=== PATIENT | female | born 1995 | race Caucasian/White ===

== ENCOUNTER 2017-05-07 16:38 | Emergency (ER) | payer SELFPAY ==
[2017-05-07 16:46] VITALS: BP 140/85
--- NOTE | 2017-05-07 17:28 | ER Document Report ---
HPI - HPI Pain Level: Denies Notes: Patient is a 21-year-old female who presents the ED complaining of an abscess to her posterior left leg and her anterior right leg 4 days. Patient states that they have been draining and are painful. She has not noticed any red streaks. She has been using some [id number] meds with minimal relief. She has not been applying any triple antibiotic ointment. Patient denies any history of MRSA. She is not aware of any insect bites to her legs. Patient still able to ambulate without any difficulties. No other concerns or complaints at this time. Denies any headache, fever, URI, sore throat, chest pain, palpitations, syncope, cough, shortness of breath, wheeze, dyspnea, abdominal pain, nausea/vomiting/diarrhea, numbness/tingling, muscle paralysis/ weakness. Patient denies any other illicit drug use. Denies any significant past medical history. - ROS Notes: REVIEW OF SYSTEMS: CONSTITUTIONAL : Denies fever, chills, or sweats. Denies recent illness. EENT: Denies eye, ear, throat, or mouth pain or symptoms. Denies nasal or sinus congestion or discharge. Denies throat, tongue, or mouth swelling or difficulty swallowing. CARDIOVASCULAR: Denies chest pain. Denies palpitations or racing or irregular heart beat. Denies ankle edema. RESPIRATORY: Denies cough, cold, or chest congestion. Denies shortness of breath, difficulty breathing, or wheezing. GASTROINTESTINAL: Denies abdominal pain or distention. Denies nausea, vomiting , or diarrhea. Denies blood in vomitus, stools, or per rectum. Denies black, tarry stools. Denies constipation. GENITOURINARY: Denies difficulty urinating, painful urination, burning, frequency, blood in urine, or discharge. MUSCULOSKELETAL: Denies back or neck pain or stiffness. Denies joint pain or swelling. SKIN: see hpi NEUROLOGICAL: Denies confusion or altered mental status. Denies passing out or loss of consciousness. Denies dizziness or lightheadedness. Denies headache. Denies weakness or paralysis or loss of use of either side. Denies problems with gait or speech. Denies sensory loss, numbness, or tingling. ALL OTHER SYSTEMS REVIEWED AND NEGATIVE. Dictation was performed using [employer] recognition software - DERM Skin Color: Normal Past Medical History - Social History Smoking Status: Unknown if Ever Smoked Family History: Reviewed & Not Pertinent Renal/ Medical History: Denies: Hx Peritoneal Dialysis Vertical Provider Document - CONSTITUTIONAL Agree With Documented VS: Yes Notes: PHYSICAL EXAMINATION: GENERAL: Well-appearing, well-nourished and in no acute distress. LUNGS: Breath sounds clear to auscultation bilaterally and equal. No wheezes rales or rhonchi. HEART: Regular rate and rhythm without murmurs, rubs, gallops. Musculoskeletal: LE's b/l: FROM to passive/active. Strength 5+/5. Extremities: No cyanosis, clubbing, or edema b/l. Peripheral pulses 2+. Capillary refill less than 3 seconds. NEUROLOGICAL: Normal speech, normal gait. Normal sensory, motor exams PSYCH: Normal mood, normal affect. SKIN: Left posterior lecm x2cm abscess noted that is open with minimal discharge. + tenderness/induration. No streaks of fluid pocket otherwise. Rt anterior [id number] erythemic/indurated abscess with + tenderness. No discharge appreciated. No streaks noted. - INFECTION CONTROL TRAVEL OUTSIDE OF THE [place] IN LAST 30 DAYS: No - RESPIRATORY O2 Sat by Pulse Oximetry: 99 Course - Re-evaluation Re-evalutation: 05/07/17 17:33 Patient is an afebrile, well-hydrated, 21-year-old female who presents the ED with 2 abscesses on her legs bilaterally. Vitals are stable. PE otherwise unremarkable at this time. Wound culture was obtained from the draining abscess. Reviewed the treatment plans with the patient and recommended incision and drainage with wound packing, but patient declined. Risks/benefits were reviewed and understood by the patient and of her decision. Wound instructions reviewed with the patient and wound care reviewed. I will send her home with a prescription for Keflex and Bactrim to take as directed. Recheck with PCM in 2-3 days. Monitor symptoms closely for any worsening infection. Return to the ED with any worsening/concerning symptoms otherwise as reviewed in discharge. Patient is in agreement. Low suspicion for any other emergent systemic condition at this time. Patient is aware that her condition can change from initial presentation and she needs to monitor symptoms closely and seek medical attention if any acute changes. - Vital Signs Vital signs: Temp Pulse Resp BP Pulse Ox 98.5 F 95 22 H 140/85 H 99 05/07/17 16:45 05/07/17 16:45 05/07/17 16:45 05/07/17 16:45 05/07/17 16:45 Discharge - Discharge Clinical Impression: Abscess Condition: Stable Disposition: HOME, SELF-CARE Instructions: Abscess ([facility]), Antibiotic Ointment Protection ([facility]), Cephalexin ( [facility]), Epsom Salt Soaks ([facility]), Soap Cleansing ([facility]), Trimethoprim-Sulfa ([facility]) Additional Instructions: Do not shower or bathe for 24 hours. After 24 hours she may shower but no submersion of the wound under water. Change the dressing daily and use a small amount of triple antibiotic ointment over the open wound. Return to the ED and/ or your PCM in 2-3 days for recheck. Monitor for any signs of worsening pain or redness, streaks, and/or fever. Return to the ED if noticing any of the above symptoms or as needed. Take medications as directed. Return to the ED with any worsening symptoms and/or development of fever, headache, chest pain, palpitations, syncope, shortness of breath, trouble breathing, abdominal pain, n/v/d, muscle weakness/paralysis, numbness/tingling, or other worsening symptoms that are concerning to you. Prescriptions: Cephalexin Monohydrate [Keflex 500 mg Capsule] 500 mg PO BID #20 capsule Sulfamethoxazole/Trimethoprim [Bactrim Ds Tablet] 1 each PO BID #20 tablet Forms: Elevated Blood Pressure Referrals: [facility] [Provider Group] - Follow up as needed [facility] [Provider Group] - Follow up as needed [facility] [Provider Group] - Follow up as needed
== END 2017-05-07 17:38 | disposition home or self-care (01) ==
LOC: ER 16:38
DX: L02.416 Cutaneous abscess of left lower limb (principal)
CPT/HCPCS: 87070; 87075; 87077; 87186; 87205; 99283

== ENCOUNTER 2017-11-15 03:55 | Emergency (ER) | payer SELFPAY ==
[2017-11-15] MEDS ORDERED: NORMAL SALINE 1000 ML 1,000 ML IV ONE (04:14)
[2017-11-15] MEDS ORDERED: ONDANSETRON HCL INJ/PF 4 MG/2 ML SDV IV ONE (04:14)
[2017-11-15] MEDS ORDERED: MIDAZOLAM 2 MG/2 ML INJ IV ONE (04:15)
[2017-11-15 04:51] LABS: ABSOLUTE BASOPHILS # (AUTO) 0.1 10^3/uL (0.0-0.2); ABSOLUTE EOSINOPHILS # (AUTO) 0.2 10^3/uL (0.0-0.6); ABSOLUTE LYMPHOCYTES (AUTO) 4.1 10^3/uL (0.5-4.7); BASOPHILS % (AUTO) 0.9 % (0-2); EOSINOPHILS % (AUTO) 1.7 % (0-6); HEMATOCRIT 36.9 % (36.0-47.0); HEMOGLOBIN 12.4 g/dL (12.0-15.5); MEAN CORPUSCULAR HGB CONC 33.7 g/dL (32.0-36.0); MEAN CORPUSCULAR VOLUME 89 fl (80-97); MONOCYTES % (AUTO) 10.5 % (3-13); PLATELET COUNT 228 10^3/uL (150-450); RED BLOOD COUNT 4.14 10^6/uL (3.72-5.28); RED CELL DISTRIBUTION WIDTH 12.8 % (11.5-14.0); SEGMENTED NEUTROPHILS % (AUTO) 42.9 % (42-78); TOTAL CELLS COUNTED % (AUTO) 100 %; WHITE BLOOD COUNT 9.3 10^3/uL (4.0-10.5)
--- NOTE | 2017-11-15 04:53 | ER Document Report ---
ED General - General Chief Complaint: Flu Symptoms Stated Complaint: FEVER Time Seen by Provider: 11/15/17 04:14 Notes: Patient is a 22-year-old female who comes emergency department for chief complaint of flulike symptoms, states she started feeling achy and like she was running fevers yesterday, she also has mild congestion and cough. She states however today she worsened, and vomited a couple of times, feels dizzy when she stands. She has some discomfort in her upper abdomen. She denies chest pain, shortness of breath, lower abdominal pain, vaginal discharge, dysuria. LMP within the past month. Takes no daily medications, denies any surgeries. She denies smoking or alcohol. TRAVEL OUTSIDE OF THE [place] IN LAST 30 DAYS: No - Related Data Allergies/Adverse Reactions: No Known Allergies Allergy (Unverified 05/07/17 16:44) Past Medical History - General Information source: Patient - Social History Smoking Status: Never Smoker Frequency of alcohol use: None Drug Abuse: None Lives with: Friend Family History: Reviewed & Not Pertinent Patient has suicidal ideation: No Patient has homicidal ideation: No - Medical History Medical History: Negative Renal/ Medical History: Denies: Hx Peritoneal Dialysis Surgical Hx: Negative - Immunizations Immunizations up to date: Yes Hx Diphtheria, Pertussis, Tetanus Vaccination: Yes Review of Systems - Review of Systems Constitutional: See HPI EENT: See HPI Cardiovascular: No symptoms reported Respiratory: See HPI Gastrointestinal: See HPI Genitourinary: No symptoms reported Female Genitourinary: No symptoms reported Musculoskeletal: No symptoms reported Skin: No symptoms reported Hematologic/Lymphatic: No symptoms reported Neurological/Psychological: No symptoms reported Physical Exam - General General appearance: Appears well In distress: None - HEENT Head: Normocephalic, Atraumatic Eyes: Normal Conjunctiva: Normal Extraocular movements intact: Yes Eyelashes: Normal Pupils: PERRL Ears: Normal Sinus: Normal Nasal: Normal Mouth/Lips: Normal Mucous membranes: Normal Pharynx: Normal Neck: Normal - Respiratory Respiratory status: No respiratory distress. No: Labored, Tachypnea Breath sounds: Normal. No: Decreased air movement, Nonproductive cough - Cardiovascular Rhythm: Regular. No: Tachycardia Heart sounds: Normal auscultation, S1 appreciated, S2 appreciated - Abdominal Inspection: Normal Tenderness: Tender - Very mild generalized upper abdominal tenderness, no guarding, lower abdomen is completely benign. No: Guarding, Rebound - Back Back: Normal, Nontender. No: Tender, CVA tenderness - Extremities General upper extremity: Normal inspection, Nontender, Normal strength, Normal temperature General lower extremity: Normal inspection, Nontender, Normal strength, Normal temperature. 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 is negative. Patient with minimal upper abdominal tenderness, probably from vomiting, no tenderness suggesting acute abdomen or pancreatitis. Lungs clear, no coughing or respiratory symptoms on my exam. Minimal congestion was reported fever and chills. Suspect she has a virus. Patient tolerating food and fluids after Zofran without any difficulty. Providing with symptom management, discussed follow-up and return precautions, providing with work release. Patient states satisfaction and agreement with plan. - Laboratory Result Diagrams: 11/15/17 04:39 11/15/17 04:39 Laboratory results interpreted by me: 11/15/17 04:39 Urine Blood SMALL H Discharge - Discharge Clinical Impression: Fever and chills Nausea and vomiting Qualifiers: Vomiting type: unspecified Vomiting Intractability: non-intractable Qualified Code(s): R11.2 - Nausea with vomiting, unspecified Condition: Stable Disposition: HOME, SELF-CARE Additional Instructions: Your workup and evaluation are consistent with a viral illness. This should resolve with time. Take the Phenergan for nausea if needed, take the Pepcid to help resolve nausea/stomach discomfort, take Tessalon if needed for cough. Take Tylenol or ibuprofen for fevers chills. Hydrate and rest. Start with bland foods and slowly progress. Follow-up with primary care. Return if you worsen including difficulty breathing, uncontrolled vomiting, severe abdominal pain, or any other concerning or worsening symptoms. Prescriptions: Benzonatate [Tessalon Perle 100 mg Capsule] 100 mg PO Q8HP PRN #20 cap PRN Reason: Famotidine [Pepcid 20 mg Tablet] 20 mg PO BID #12 tablet Promethazine HCl [Phenergan 25 mg Tablet] 1 - 2 tab PO Q6H PRN #15 tablet PRN Reason: Forms: Return to Work
[2017-11-15 05:02] LABS: APPEARANCE,URINE CLEAR; BILIRUBIN,URINE NEGATIVE (NEGATIVE); COLOR,URINE YELLOW; GLUCOSE, URINE NEGATIVE (NEGATIVE); KETONES,URINE NEGATIVE (NEGATIVE); LEUKOCYTE ESTERASE,URINE NEGATIVE (NEGATIVE); NITRITE,URINE NEGATIVE (NEGATIVE); PROTEIN,URINE NEGATIVE (NEGATIVE); URINE SPECIFIC GRAVITY 1.014; UROBILINOGEN,URINE NEGATIVE mg/dL (<2.0)
[2017-11-15 05:11] LABS: ALANINE AMINOTRANSFERASE 19 U/L (9-52); ALBUMIN 4.8 g/dL (3.5-5.0); ALKALINE PHOSPHATASE 51 U/L (38-126); ANION GAP 14 (5-19); ASPARTATE AMINO TRANSFERASE 15 U/L (14-36); BILIRUBIN,DIRECT 0.1 mg/dL (0.0-0.4); BILIRUBIN,TOTAL 0.3 mg/dL (0.2-1.3); BLOOD UREA NITROGEN 16 mg/dL (7-20); CALCIUM 9.6 mg/dL (8.4-10.2); CARBON DIOXIDE 26 mmol/L (22-30); CHLORIDE 101 mmol/L (98-107); GLUCOSE 82 mg/dL (75-110); POTASSIUM 3.9 mmol/L (3.6-5.0); SODIUM 141.3 mmol/L (137-145); TOTAL PROTEIN 7.2 g/dL (6.3-8.2)
[2017-11-15] MEDS ORDERED: ONDANSETRON ODT 4 MG TAB (6 TAB/ER DISP) PO PRN (05:25)
[2017-11-15 06:18] VITALS: BP 128/72
== END 2017-11-15 06:18 | disposition home or self-care (01) ==
LOC: ER 03:55
DX: R50.9 Fever, unspecified (principal); R11.2 Nausea with vomiting, unspecified; R09.81 Nasal congestion; R05 Cough; R42 Dizziness and giddiness
CPT/HCPCS: 99283; 96361; 96374; 36415; 85025; 81025; 80053; 81001; J2405; J7030